=== PATIENT | female | born 1980 | race Caucasian/White ===

== ENCOUNTER 2017-04-10 06:31 | Inpatient (IN) | payer OTHER ==
[2017-04-10] MEDS ORDERED: Oxytocin in LR* 20 UNITS/1,000 ML BAG IVPB SCH (09:00)
[2017-04-10 10:48] LABS: Hematocrit 39 % (35-47); Hemoglobin 13.7 g/dl (12.0-16.0); Mean Corpuscular HGB Conc 35 g/dl (31-36); Mean Corpuscular Hemoglobin 33 pg (27-31); Mean Corpuscular Volume 93 fL (80-97); Mean Platelet Volume 8 um3 (7.4-10.4); Red Blood Count 4.19 10^6/ul (4.0-5.4); Red Cell Distribution Width 13 % (10.5-15)
[2017-04-10] MEDS ORDERED: Promethazine INJ(RESTRICTED)* 25 MG/ML 1 ML VIAL IV ONE (14:59)
[2017-04-10] MEDS ORDERED: Nalbuphine* 20 MG/ML 1 ML VIAL IV ONE (15:00)
[2017-04-10] MEDS ORDERED: OBEPIDURAL* 250 ML ONE (17:56)
[2017-04-10] MEDS ORDERED: Phenylephrine IV* 40 MCG/ML 10 ML SYRINGE IV PUSH PRN ×2 (18:50)
[2017-04-10] MEDS ORDERED: Sodium Citrate/Citric Acid* 15 ML UDC PO PRN (18:50)
[2017-04-10] MEDS ORDERED: OBEPIDURAL* 250 ML EPIDURAL SCH (19:00)
[2017-04-11] MEDS ORDERED: Oxytocin in LR* 20 UNITS/1,000 ML BAG IVPB ONE (00:23)
[2017-04-11] MEDS ORDERED: Glycerin ADULT SUPP PR PRN (01:27)
[2017-04-11] MEDS ORDERED: Ibuprofen TAB* 600 MG ONE (01:47)
[2017-04-11] MEDS ORDERED: Oxytocin in LR* 20 UNITS/1,000 ML BAG IVPB SCH (02:00)
[2017-04-11] MEDS: Acetaminophen TAB* 325 MG PO PRN ×4 (05:14→20:05)
[2017-04-11] MEDS ORDERED: Lidocaine 1% MPF* 2 ML VIAL ONE (06:03)
[2017-04-11] MEDS: Docusate CAP* 100 MG PO SCH ×3 (08:13→20:04)
[2017-04-11] MEDS: Ibuprofen TAB* 600 MG PO PRN ×3 (08:13→19:17)
[2017-04-11] MEDS: Dibucaine 1% 28.35 GM TUBE PR PRN (08:14)
[2017-04-11] MEDS: Witch Hazel PAD* JAR TOPICAL PRN (08:14)
[2017-04-11] MEDS ORDERED: Simethicone TAB* 80 MG TAB.CHEW PO SCH (08:30)
--- NOTE | 2017-04-11 20:23 | PTEDU ---
Patient Name: JULI VALENTE JULI VALENTE selected video: Follow Me Mum: [employer] [facility] [facility] Successful to view on 04/11/2017 at 8:21:51 PM from [id number]
[2017-04-12] MEDS: Acetaminophen TAB* 325 MG PO PRN ×3 (01:13→21:39)
[2017-04-12] MEDS: Ibuprofen TAB* 600 MG PO PRN ×4 (01:13→21:23)
[2017-04-12 06:32] LABS: Hematocrit 27 % (35-47); Hemoglobin 9.7 g/dl (12.0-16.0); Mean Corpuscular HGB Conc 36 g/dl (31-36); Mean Corpuscular Hemoglobin 33 pg (27-31); Mean Corpuscular Volume 93 fL (80-97); Mean Platelet Volume 8 um3 (7.4-10.4); Red Blood Count 2.91 10^6/ul (4.0-5.4); Red Cell Distribution Width 13 % (10.5-15); White Blood Count 10.4 10^3/ul (3.5-10.8)
[2017-04-12 06:45] LABS: BUN/Creatinine Ratio 17.2 (8-20); Calcium 8.5 mg/dL (8.6-10.3); EGFR African American 152.1 (>60); EGFR Non-African American 118.3 (>60); Potassium 3.7 mmol/L (3.5-5.0)
[2017-04-12] MEDS: Docusate CAP* 100 MG PO SCH ×3 (08:51→21:23)
[2017-04-12] MEDS: Ferrous Gluconate TAB* 324 MG TAB PO SCH ×2 (08:51→21:00)
[2017-04-12] MEDS: Witch Hazel PAD* JAR TOPICAL PRN (11:07)
[2017-04-12] MEDS: Dibucaine 1% 28.35 GM TUBE PR PRN (11:07)
[2017-04-13] MEDS: Acetaminophen TAB* 325 MG PO PRN ×2 (02:17→10:06)
[2017-04-13] MEDS: Ibuprofen TAB* 600 MG PO PRN ×2 (04:24→12:55)
[2017-04-13 08:27] VITALS: BP 121/80
[2017-04-13] MEDS: Ferrous Gluconate TAB* 324 MG TAB PO SCH (10:06)
[2017-04-13] MEDS: Docusate CAP* 100 MG PO SCH (10:06)
== END 2017-04-13 13:23 | disposition home or self-care (01) | DRG 775 ==
LOC: MCHOBOUT 06:31 → MCHOB 07:34
PROVIDERS: ADMIT Obstetrics & Gynecology; ATTEND Obstetrics & Gynecology
PROC: 10E0XZZ Delivery of Products of Conception, External Approach (ICD-10-PCS; principal; 2017-04-11)
PROC: 0KQM0ZZ Repair Perineum Muscle, Open Approach (ICD-10-PCS; 2017-04-11)
PROC: 4A1HXCZ Monitoring of Products of Conception, Cardiac Rate, External Approach (ICD-10-PCS; 2017-04-11)
PROC: 3E0P3VZ Introduction of Hormone into Female Reproductive, Percutaneous Approach (ICD-10-PCS; 2017-04-11)
DX: O69.81X0 Labor and delivery complicated by cord around neck, without compression, not applicable or unspecified (principal); O70.1 Second degree perineal laceration during delivery; O90.81 Anemia of the puerperium; Z3A.40 40 weeks gestation of pregnancy; Z37.0 Single live birth
CPT/HCPCS: 36415; 80048; 85025; 86850; 86900; 86901; A9270-GY; J2300; J2550

== ENCOUNTER 2018-12-18 00:02 | Inpatient (IN) | payer OTHER ==
[2018-12-18] MEDS ORDERED: Lactated Ringers 1000 ML Bag* 1,000 ML IV ONE ×2 (01:03→02:03)
[2018-12-18] MEDS ORDERED: Buffered Lidocaine 1% SYRIN* 1 ML/SYRINGE INTRADERM ONE (01:03)
[2018-12-18 01:10] LABS: Hematocrit 40 % (35-47); Hemoglobin 13.4 g/dL (12.0-16.0); Mean Corpuscular HGB Conc 34 g/dL (31-36); Mean Corpuscular Hemoglobin 32 pg (27-31); Mean Corpuscular Volume 93 fL (80-97); Platelet Count 291 10^3/uL (150-450); Red Blood Count 4.25 10^6 /uL (3.70-4.87); Red Cell Distribution Width 14 % (10-15); White Blood Count 14.4 10^3/uL (3.5-10.8)
[2018-12-18] MEDS ORDERED: OBEPIDURAL* 250 ML EPIDURAL ONE (01:18)
--- NOTE | 2018-12-18 01:22 | HP ---
General Information - Reason for Visit ctxs more regular since 22:30. +bloody show - General Information Maternal Age: 38 Grav: 3 Para: 1 SAB: 1 IEA: 0 Estimated Due Date: 12/11/18 Determined By: LMP Maternal Blood Type and Rh: B Positive - Results this Serology/RPR Result: Non-Reactive Rubella Result: Immune HBsAg Result: Negative HIV Result: Negative GBS Culture Result: Negative Past Medical History Delivery History: Hx Uncomplicated Vaginal Delivery Pertinent Past Medical History: Non-Contributory Pertinent Past Surgical History: See Records Pertinent Family History: Non-Contributory - Antepartal Records Antepartal Records: Reviewed, Uncomplicated Review of Systems Constitutional: Uncomfortable CV Complaint: No Respiratory: Shortness of Breath: No Gastrointestinal: No Nausea/Vomiting, Normal Bowel Movement Genitourinary: No Dysuria, No Leaking Fluid, Spotting Musculoskeletal: Contractions - q3-4 Movement: Normal Exam Allergies/Adverse Reactions: Allergies No Known Allergies Allergy (Verified 12/17/18 06:38) Lab Values - Entire Visit: Laboratory Tests 12/18/18 00:55 WBC 14.4 H RBC 4.25 Hgb 13.4 Hct 40 MCV 93 MCH 32 H MCHC 34 RDW 14 Plt Count 291 MPV 8.0 - Measurements Height: 5 ft 4 in Weight: 150 lb Weight in lbs: [id number] Body Mass Index (BMI): 25.7 Pre- Weight: 115 lb Weight Gained This : 35 lbs and 0 ozs - Exam Breast: Breast Exam Deferred Extremities: No Edema Heart: Normal Rhythm/Heart Sounds HEENT: No Significant Findings - Abdominal Exam Abdomen Exam: Non-Tender - Ultrasound/Biophysical Profile Ultrasound Status: Not Done Targeted Exam Findings Cervical Exam: 4cm Effacement: 70% Station: +2 Presenting Part: Vertex Membrane Status: Intact EFM Findings - External Monitor Findings External Monitor Findings: Accelerations Present, No Pattern of Variable or Late Decelerations, Variability Moderate, Baseline Stable Contractions: Regular Assessment/Plan - Assessment @41wks in labor. - Plan Plan: Admit - Anticipate Vaginal Delivery - Date/Time of Admission Date of Admission: 12/18/18
[2018-12-18] MEDS ORDERED: Bupivacaine 0.25% SDV PF* 10 ML VIAL INJ ONE ×2 (01:39→01:41)
[2018-12-18] MEDS ORDERED: Lactated Ringers 1000 ML Bag* 1,000 ML IV SCH ×3 (02:00→12:00)
[2018-12-18] MEDS ORDERED: EPHEDrine (Pressors)* 50 MG/ML VIAL IV PUSH PRN (02:03)
[2018-12-18] MEDS ORDERED: Phenylephrine 40 MCG/ML SYRINGE IV PUSH PRN (02:03)
[2018-12-18] MEDS ORDERED: Famotidine TAB* 20 MG PO PRN (02:03)
[2018-12-18] MEDS ORDERED: Sodium Citrate/Citric Acid* 15 ML UDC PO PRN (02:03)
[2018-12-18] MEDS ORDERED: OBEPIDURAL* 250 ML EPIDURAL SCH (03:00)
[2018-12-18] MEDS ORDERED: Oxytocin in LR* 20 UNITS/1,000 ML BAG IVPB ONE (07:51)
[2018-12-18] MEDS ORDERED: Oxytocin in LR* 20 UNITS/1,000 ML BAG IVPB SCH ×2 (09:00→12:00)
[2018-12-18] MEDS ORDERED: Tetan/Diph/Pertus SYR(Tdap)* 0.5 ML SYR(BOOSTRIX) use SYR IM ONE (11:40)
--- NOTE | 2018-12-18 11:46 | PROCNOTE ---
[facility] OB: Delivery Note - Delivery A Date of : 12/18/18 Time of : 11:11 Sex: Male Weight at : 8 lb 1 oz Score 1 Minute: 9 Score 5 Minutes: 9 Gestational Age in Weeks and Days at Delivery: 41 Weeks and 0 Days Delivery Method: Spontaneous Vaginal Labor: Spontaneous Did Patient attempt ?: N/A, No Previous Amniotic Fluid: Meconium Estimated Blood Loss: 300 Anesthesia/Analgesia: CEI for Labor Delivered By: Genaro Polanco - Nursery Level of Nursery: Regular/Bedside - Perineum Perineal Injury: 2nd Degree Perineal Repair: By Delivering Practioner - Events Delivery Events of Note: Pitocin During Labor - Additional Delivery Notes Additional Delivery Notes: Pt admitted in early labor, progressed to about 5cm, received epidural. Ctx decreased and pitocin added for augmentation when there was no change for about 3 hrs. AROM performed, clear fluid. Pt then progressed to C/C/+1. She pushed for 11 min to deliver the head in a controlled fashion, OA. Shoulders and body followed easily. placed on mother's abdomen. Cord clamped and cut by grandmother. IV pitocin increased. Placenta delivered spontaneously and intact. Lidocaine injected. 2nd degree perineal lac repaired with 3-0 Vicryl Rapide. Small right labial lac was bleeding, repaired with 4-0 Vicryl rapide. Pt doing very well at that time, minimal bleeding.
[2018-12-18] MEDS: Ibuprofen TAB* 600 MG PO PRN ×2 (12:25→19:23)
[2018-12-18] MEDS: Witch Hazel PAD* JAR TOPICAL PRN (12:25)
[2018-12-18] MEDS: Docusate CAP* 100 MG PO SCH ×2 (12:26→21:03)
[2018-12-18] MEDS: Acetaminophen TAB* 325 MG PO PRN ×2 (15:59→21:04)
[2018-12-18] MEDS: Dibucaine 1% 28.35 GM TUBE PR PRN (15:59)
[2018-12-19] MEDS: Acetaminophen TAB* 325 MG PO PRN ×4 (01:06→20:31)
[2018-12-19] MEDS: Simethicone TAB* 80 MG TAB.CHEW PO SCH (01:14)
[2018-12-19] MEDS: Ibuprofen TAB* 600 MG PO PRN ×4 (03:26→23:34)
[2018-12-19] MEDS: Docusate CAP* 100 MG PO SCH ×3 (08:08→20:31)
[2018-12-19] MEDS: Dibucaine 1% 28.35 GM TUBE PR PRN (08:42)
[2018-12-19 08:54] LABS: ABS Basophils 0.1 10^3/ul (0-0.2); ABS Eosinophils 0.1 10^3/ul (0-0.6); ABS Lymphocytes 1.8 10^3/ul (1.0-4.8); ABS Monocytes 0.5 10^3/ul (0-0.8); ABS Neutrophils 9.6 10^3/ul (1.5-7.7); Eosinophil % 1.2 %; Hematocrit 37 % (35-47); Hemoglobin 12.9 g/dL (12.0-16.0); Lymphocyte % 14.5 %; Mean Corpuscular HGB Conc 35 g/dL (31-36); Mean Corpuscular Hemoglobin 32 pg (27-31); Mean Corpuscular Volume 93 fL (80-97); Mean Platelet Volume 7.9 fL (7.4-10.4); Nucleated Red Blood Cells % 0.1; Platelet Count 261 10^3/uL (150-450); Red Blood Count 3.97 10^6 /uL (3.70-4.87); Red Cell Distribution Width 13 % (10-15); White Blood Count 12.1 10^3/uL (3.5-10.8)
[2018-12-19] MEDS: Witch Hazel PAD* JAR TOPICAL PRN (09:33)
[2018-12-19] MEDS: Ferrous Gluconate TAB* 324 MG TAB PO SCH (09:33)
[2018-12-20] MEDS: Acetaminophen TAB* 325 MG PO PRN ×3 (01:25→09:24)
[2018-12-20] MEDS: Ferrous Gluconate TAB* 324 MG TAB PO SCH ×2 (01:42→09:21)
[2018-12-20] MEDS: Ibuprofen TAB* 600 MG PO PRN ×2 (05:40→11:41)
[2018-12-20 07:32] VITALS: BP 100/52
[2018-12-20] MEDS: Docusate CAP* 100 MG PO SCH (07:48)
== END 2018-12-20 12:00 | disposition home or self-care (01) | DRG 807 ==
LOC: MCHOBOUT 00:02 → MCHOB 00:26
PROVIDERS: ADMIT Obstetrics & Gynecology; ATTEND Obstetrics & Gynecology
PROC: 10E0XZZ Delivery of Products of Conception, External Approach (ICD-10-PCS; principal; 2018-12-18)
PROC: 0KQM0ZZ Repair Perineum Muscle, Open Approach (ICD-10-PCS; 2018-12-18)
PROC: 0UQMXZZ Repair Vulva, External Approach (ICD-10-PCS; 2018-12-18)
PROC: 10907ZC Drainage of Amniotic Fluid, Therapeutic from Products of Conception, Via Natural or Artificial Opening (ICD-10-PCS; 2018-12-18)
PROC: 4A1HXCZ Monitoring of Products of Conception, Cardiac Rate, External Approach (ICD-10-PCS; 2018-12-18)
DX: O48.0 Post-term pregnancy (principal); Z37.0 Single live birth; Z3A.41 41 weeks gestation of pregnancy; O70.1 Second degree perineal laceration during delivery; O77.0 Labor and delivery complicated by meconium in amniotic fluid
CPT/HCPCS: 36415; 85025; 85027; 86850; 86900; 86901; 90715; A9270-GY; J3490

== ENCOUNTER 2020-11-11 12:04 | Inpatient (IN) ==
[2020-11-11] MEDS ORDERED: Buffered Lidocaine 1% SYRIN 1 ml INTRADERM ONE (13:08)
[2020-11-11] MEDS ORDERED: Lactated Ringers 1000 ml BAG 1,000 ML IV ONE (13:08)
[2020-11-11 14:12] LABS: Urine Benzodiazepine Screen None Detected (None Detect); Urine Cannabinoids Screen None Detected (None Detect); Urine Opiates Screen None Detected (None Detect)
[2020-11-11 21:01] LABS: ABS Eosinophils 0.1 10^3/ul (0-0.6); ABS Lymphocytes 2.1 10^3/ul (1.0-4.8); ABS Monocytes 0.8 10^3/ul (0-0.8); ABS Neutrophils 7.3 10^3/ul (1.5-7.7); Eosinophil % 1.1 %; Hematocrit 38 % (35-47); Hemoglobin 13.4 g/dL (12.0-16.0); Lymphocyte % 20.4 %; Mean Corpuscular HGB Conc 35 g/dL (31-36); Mean Corpuscular Hemoglobin 33 pg (27-31); Mean Corpuscular Volume 95 fL (80-97); Platelet Count 286 10^3/uL (150-450); Red Blood Count 4.05 10^6 /uL (3.70-4.87); Red Cell Distribution Width 13 % (10-15); White Blood Count 10.3 10^3/uL (3.5-10.8)
[2020-11-11] MEDS ORDERED: Promethazine INJ(RESTRICTED) 25 MG/ML 1 ml VIAL IV PRN (22:38)
[2020-11-11] MEDS ORDERED: Morphine 10 MG/ML VIAL (1 ml) IV PRN (22:39)
[2020-11-12] MEDS ORDERED: Morphine 10 MG/ML VIAL (1 ml) IV PRN (04:17)
[2020-11-12] MEDS ORDERED: Oxytocin in LR 20 UNITS/1,000 ML BAG IVPB SCH (05:00)
[2020-11-12] MEDS: Lactated Ringers 1000 ml BAG 1,000 ML IV SCH ×3 (05:30→17:45)
[2020-11-12] MEDS ORDERED: OBEPIDURAL 250 ML EPIDURAL ONE (16:38)
[2020-11-12] MEDS ORDERED: Phenylephrine 40 mcg/mL 10mL (400mcg) SYRINGE IV PUSH PRN ×2 (17:30)
[2020-11-12] MEDS ORDERED: Sodium Citrate/Citric Acid LIQ 15 ML UDC PO PRN (17:30)
[2020-11-12] MEDS ORDERED: Lactated Ringers 1000 ml BAG 1,000 ML IV ONE (17:30)
[2020-11-12] MEDS ORDERED: Lactated Ringers 1000 ml BAG 1,000 ML IV SCH (18:00)
[2020-11-12] MEDS ORDERED: OBEPIDURAL 250 ML EPIDURAL SCH (18:00)
[2020-11-13] MEDS ORDERED: Witch Hazel PAD JAR TOPICAL PRN (00:05)
[2020-11-13] MEDS ORDERED: Glycerin ADULT 2.4 gm SUPP PR PRN (00:05)
[2020-11-13] MEDS ORDERED: Lidocaine 1% VIAL 10 MG/ML VIAL ONE (00:17)
[2020-11-13] MEDS ORDERED: Lactated Ringers 1000 ml BAG 1,000 ML IV SCH (01:00)
[2020-11-13] MEDS: Dibucaine 1% OINT 28.35 GM TUBE PR PRN (06:17)
[2020-11-13 12:57] LABS: ABS Eosinophils 0.1 10^3/ul (0-0.6); ABS Lymphocytes 1.7 10^3/ul (1.0-4.8); ABS Monocytes 0.8 10^3/ul (0-0.8); ABS Neutrophils 10.8 10^3/ul (1.5-7.7); Eosinophil % 0.8 %; Hematocrit 37 % (35-47); Hemoglobin 12.6 g/dL (12.0-16.0); Lymphocyte % 12.4 %; Mean Corpuscular HGB Conc 34 g/dL (31-36); Mean Corpuscular Hemoglobin 33 pg (27-31); Mean Corpuscular Volume 95 fL (80-97); Platelet Count 269 10^3/uL (150-450); Red Blood Count 3.87 10^6 /uL (3.70-4.87); Red Cell Distribution Width 13 % (10-15); White Blood Count 13.4 10^3/uL (3.5-10.8)
[2020-11-14] MEDS: Dibucaine 1% OINT 28.35 GM TUBE PR PRN (08:16)
[2020-11-14 08:31] VITALS: BP 117/69
== END 2020-11-14 12:05 | disposition home or self-care (01) | DRG 807 ==
LOC: MCHOBOUT 12:04 → MCHOB 13:06
PROVIDERS: ADMIT Obstetrics & Gynecology; ATTEND Obstetrics & Gynecology

== ENCOUNTER 2023-10-15 09:06 | Inpatient (IN) ==
[2023-10-15] MEDS ORDERED: Prochlorperazine 5 mg/ml 2 ml VIAL (10 mg) IV PRN (09:59)
[2023-10-15 12:17] LABS: ABS Basophils 0.1 10^3/uL (0.0-0.1); ABS Eosinophils 0.1 10^3/uL (0.0-0.5); ABS Lymphocytes 1.6 10^3/uL (1.0-4.8); ABS Monocytes 0.5 10^3/uL (0.0-0.9); ABS Neutrophils 5.8 10^3/uL (1.5-7.6); ABS Nucleated RBC 0.01 10^3/ul; Eosinophil % 1.2 %; Hematocrit 38.9 % (35-45); Hemoglobin 13.6 g/dL (11.5-14.3); Lymphocyte % 19.7 %; Mean Corpuscular Hemoglobin 31.7 pg (27-33); Mean Corpuscular Hgb Conc 34.9 g/dL (31-36); Mean Corpuscular Volume 90.8 fL (80-97); Mean Platelet Volume 7.6 fL (7.5-11.2); Nucleated Red Blood Cells % 0.1 %/100WBC (0.0-0.8); Platelet Count 351 10^3/uL (150-450); Red Blood Count 4.28 10^6/uL (3.63-4.92); Red Cell Distribution Width 13.2 % (12-17)
[2023-10-15 12:48] LABS: Platelet Count 355 10^3/ul (150-450)
[2023-10-15 12:52] LABS: ALT 13 U/L (7-52); Albumin 4.6 g/dL (3.2-5.2); Albumin/Globulin Ratio 1.9 (1-3); Alkaline Phosphatase 53 U/L (35-149); Anion Gap 10 mmol/L (2-16); Blood Urea Nitrogen 9 mg/dL (6-24); CO2 Carbon Dioxide 24 mmol/L (22-32); Calcium 9.8 mg/dL (8.6-10.3); Chloride 102 mmol/L (101-111); Creatinine, Serum 0.51 mg/dL (0.51-0.95); Globulin 2.4 g/dL (2-4); Glucose 90 mg/dL (70-100); Prolactin 27.5 ng/mL (1.0-25.0); Sodium 136 mmol/L (135-145); TSH Ultra Thyroid Stim Horm 1.27 mcIU/mL (0.34-5.60); Total Bilirubin 0.7 mg/dL (0.2-1.0); eGFR CKD-EPI 119.4 (>60)
[2023-10-15 13:30] LABS: Activated Partial Thrombo Time 27.4 seconds (26.0-38.0); INR 0.93 (0.83-1.13)
[2023-10-15 14:16] LABS: Schistocytes ABSENT
[2023-10-15] MEDS: Buffered Lidocaine 1% SYRIN 1 ml INTRADERM ONE (22:27)
[2023-10-16] MEDS ORDERED: Witch Hazel PAD JAR TOPICAL PRN (02:23)
[2023-10-16] MEDS ORDERED: Glycerin ADULT 2.4 gm SUPP PR PRN (02:23)
[2023-10-16] MEDS ORDERED: Dibucaine 1% OINT 28.35 GM TUBE PR PRN (02:23)
[2023-10-16] MEDS ORDERED: Lactated Ringers 1000 ml BAG 1,000 ML IV SCH (03:00)
[2023-10-16 07:56] LABS: ABS Eosinophils 0.2 10^3/uL (0.0-0.5); ABS Lymphocytes 1.9 10^3/uL (1.0-4.8); ABS Monocytes 0.5 10^3/uL (0.0-0.9); ABS Neutrophils 5.1 10^3/uL (1.5-7.6); ABS Nucleated RBC 0.01 10^3/ul; Eosinophil % 2.8 %; Hematocrit 29.9 % (35-45); Hemoglobin 10.7 g/dL (11.5-14.3); Lymphocyte % 24.6 %; Mean Corpuscular Hemoglobin 32.2 pg (27-33); Mean Corpuscular Hgb Conc 35.8 g/dL (31-36); Mean Corpuscular Volume 90.1 fL (80-97); Mean Platelet Volume 6.9 fL (7.5-11.2); Nucleated Red Blood Cells % 0.1 %/100WBC (0.0-0.8); Platelet Count 263 10^3/uL (150-450); Red Blood Count 3.32 10^6/uL (3.63-4.92); Red Cell Distribution Width 13.2 % (12-17); White Blood Count 7.9 10^3/uL (3.8-11.8)
[2023-10-16 12:46] VITALS: BP 108/70
== END 2023-10-16 13:36 | disposition home or self-care (01) | DRG 779 ==
LOC: MCHOBOUT 09:06 → MCHOB 09:56
PROVIDERS: ADMIT Obstetrics & Gynecology; ATTEND Obstetrics & Gynecology